=== PATIENT | female | born 1965 | race Caucasian/White ===

== ENCOUNTER 2016-05-28 08:01 | Outpatient (CLI) ==
[2016-01-18 15:15] VITALS: BMI 41.0
[2016-05-28 08:22] LABS: BILIRUBIN,URINE Negative (NEGATIVE); KETONES,URINE Negative (NEGATIVE); LEUKOCYTE ESTERASE ,URINE Negative (NEGATIVE); NITRITE,URINE Negative (NEGATIVE); PH,URINE 5.5 (5-9); PROTEIN,URINE Negative (NEGATIVE); URINE, BLOOD Negative (NEGATIVE)
[2016-05-28 08:30] LABS: ADD URINE MICROSCOPIC NO
== END 2016-05-28 08:02 | disposition home or self-care (01) ==
LOC: LAB 08:01
PROVIDERS: ATTEND Nurse Practitioner
DX: N39.0 Urinary tract infection, site not specified (principal)
CPT/HCPCS: 81001

== ENCOUNTER 2016-06-01 17:34 | Emergency (ER) | payer OTHER ==
[2016-06-01 17:38] VITALS: BP 121/78; TEMP 97.6; BMI 40.6
[2016-06-01] MEDS ORDERED: DIFLUCAN PO STA ×2 (18:16→18:28)
--- NOTE | 2016-06-01 18:21 | ED.PDOC ---
General ED Provider: Dr. LYNN DIAZ Chief Complaint: Rash Stated Complaint: RASH GROIN RIGHT LEFT SIDE Time Seen by Physician: 17:45 Mode of Arrival: Walk-In Information Source: Patient Exam Limitations: No limitations Primary Care Provider: JULITA ESPINOZA Nursing and Triage Documentation Reviewed and Agree: Yes Skin Complaint Exam - Skin Rash/Itching Complaint/Exam Onset/Duration: 3 DAYS Symptoms Are: Still present Initial Severity: Moderate Current Severity: Moderate Aggravating: Reports: None Alleviating: Reports: None Associated Signs and Symptoms: Denies: Difficulty breathing, Fever, Chills Skin Findings: Present: Maculae Differential Diagnoses: Tinea Review of Systems - Review Of Systems Constitutional: Reports: No symptoms Eyes: Reports: No symptoms Ears, Nose, Mouth, Throat: Reports: No symptoms Respiratory: Reports: No symptoms Cardiac: Reports: No symptoms GI: Reports: No symptoms : Reports: Dysuria Musculoskeletal: Reports: Back pain Skin: Reports: Rash (GROIN) Neurological: Reports: No symptoms Endocrine: Reports: No symptoms Hematologic/Lymphatic: Reports: No symptoms All Other Systems: Reviewed and Negative Past Medical History - Past Medical History Previously Healthy: Yes Endocrine: Reports: None Cardiovascular: Reports: None Respiratory: Reports: None Hematological: Reports: None Gastrointestinal: Reports: None Genitourinary: Reports: None Neuro/Psych: Reports: None Musculoskeletal: Reports: None Cancer: Reports: None Last Menstrual Period: NONE - Surgical History General Surgical History: Reports: Unknown - Family History Family History: Reports: Unknown - Social History Smoking Status: Never smoker Hx Substance Use: No Alcohol Screening: None Physical Exam - Physical Exam Appearance: Well-appearing, No pain distress, Well-nourished Eyes: GENE, EOMI, Conjunctiva clear ENT: Ears normal, Nose normal, Oropharynx normal Respiratory: Airway patent, Breath sounds clear, Breath sounds equal, Respirations nonlabored Cardiovascular: RRR, Pulses normal, No rub, No murmur GI/: Soft, Nontender, No masses, Bowel sounds normal, No Organomegaly Musculoskeletal: Normal strength, ROM intact, No edema, No calf tenderness Skin: Warm, Dry, Normal color Neurological: Sensation intact, Motor intact, Reflexes intact, Cranial nerves intact, Alert, Oriented Psychiatric: Affect appropriate, Mood appropriate Critical Care Note - Critical Care Note Total Time (mins): 0 Course - Course Orders, Labs, Meds: Orders Category Date Time Status CBC W/ AUTO DIFF Stat LAB 06/01/16 18:18 Ordered COMPREHENSIVE METABOLIC PANEL Stat LAB 06/01/16 18:18 Ordered URINALYSIS C & S IF INDICATED Stat LAB 06/01/16 18:18 Uncollected Fluconazole [Diflucan] MEDS 06/01/16 18:16 Stat 150 mg PO ONCE STA Medications Discontinued Medications Generic Name Dose Route Start Last Admin Trade Name Freq PRN Reason Stop Dose Admin Fluconazole 150 mg 06/01/16 18:16 Diflucan PO 06/01/16 18:17 ONCE STA Vital Signs: Temp Pulse Resp BP Pulse Ox 06/01/16 17:34 97.6 F 99 H 20 121/78 95 Departure - Departure Time of Disposition: 19:00 Disposition: HOME SELF-CARE Discharge Problem: Pruritic rash, Tinea cruris Instructions: Skin Yeast Infection (ED), Jock Itch (ED), Tinea Corporis (ED) Condition: Good Pt referred to PMD for follow-up: No Additional Instructions: Please call your Family Physician as soon as possible to schedule a follow-up appointment. Allergies/Adverse Reactions: Allergies clarithromycin [From Biaxin] Adverse Reaction (Verified 06/01/16 17:39) promethazine [From Phenergan] Adverse Reaction (Verified 06/01/16 17:39) propoxyphene napsylate [From Darvocet-N 100] Adverse Reaction (Verified 17:39) Sulfa (Sulfonamide Antibiotics) Adverse Reaction (Verified 06/01/16 17:39) sulfamethoxazole [From Bactrim] Adverse Reaction (Verified 06/01/16 17:39) trimethoprim [From Bactrim] Adverse Reaction (Verified 06/01/16 17:39) Home Medications: Ambulatory Orders Aspirin [Aspirin EC] 81 mg PO DAILY 02/02/13 Gabapentin [Neurontin] 300 mg PO TID 02/02/13 Cyclobenzaprine HCl [Flexeril] 10 mg PO TID 04/13/13 Acetaminophen [Tylenol] 500 mg PO TID PRN 08/07/14 Lorazepam [Ativan] 1 mg PO BID PRN 08/07/14 Fluoxetine HCl 10 mg PO DAILY 01/18/16 Levetiracetam [Keppra] 750 mg PO BID 01/18/16 Ondansetron HCl [Zofran Tab] 4 mg PO QID PRN 01/18/16 Lisinopril [Zestril] 5 mg PO DAILY 01/21/16 Albuterol Sulfate [Proair Hfa] 2 puff IH Q4-6H PRN 06/01/16 Budesonide/Formoterol Fumarate [Symbicort 80-4.5 Mcg Inhaler] 2 puff IH BID 03/08 Frovatriptan Succinate [Frova] 2.5 mg PO PRN PRN 06/01/16 Insulin Aspart Protam & Aspart [Novolog Mix 70-30 Flexpen Syrn] 100 unit SQ BID 06/01/16 Insulin Detemir [Levemir Flextouch] 100 unit SQ BID 06/01/16 Meclizine HCl [Antivert] 25 mg PO BID PRN 06/01/16 Metformin HCl [Glucophage] 1,000 mg PO BID 06/01/16 Metronidazole [Metrogel] 75 gm TP BID 06/01/16 Pantoprazole Sodium [Protonix] 40 mg PO QDAC 06/01/16 Pravastatin Sodium [Pravachol] 20 mg PO BEDTIME 06/01/16 Rizatriptan Benzoate [Maxalt] 10 mg PO PRN PRN 06/01/16 Sumatriptan Succinate [Imitrex] 100 mg PO PRN PRN 06/01/16 Topiramate [Topamax] 50 mg PO BID 06/01/16 Zolmitriptan [Zomig] 5 mg PO PRN PRN 06/01/16 Disposition Discussed With: Patient
[2016-06-01] MEDS ORDERED: DIFLUCAN ONE (18:26)
[2016-06-01 18:41] LABS: BASOPHILS # (AUTO) 0.1 K/uL (0-0.2); BASOPHILS % (AUTO) 0.7 % (0.0-3.0); EOSINOPHILS # (AUTO) 0.5 K/ul (0.0-0.7); EOSINOPHILS % (AUTO) 5.9 % (0.0-7.0); HEMATOCRIT 42.1 % (37.0-47.0); IMMATURE GRANULOCYTE % (AUTO) 0.2 % (0.0-5.0); LYMPHOCYTES # (AUTO) 3.5 K/uL (0.60-3.4); LYMPHOCYTES % (AUTO) 40.1 (10.0-50.0); MEAN CORPUSCULAR HEMOGLOBIN 28.3 pg (27.0-31.0); MEAN CORPUSCULAR HGB CONC 33.3 (31.8-35.4); MEAN CORPUSCULAR VOLUME 85.1 fl (81.0-99.0); MONOCYTES # (AUTO) 0.6 K/uL (0.4-2.0); MONOCYTES % (AUTO) 7.4 (0-10); NEUTROPHILS # (AUTO) 3.9 K/ul (2.0-6.9); NEUTROPHILS % (AUTO) 45.7; PLATELET COUNT 282 10^3/uL (140-440); RED BLOOD COUNT 4.95 10^6/ul (4.20-5.40); WHITE BLOOD COUNT 8.62 K/ul (4.6-10.2)
[2016-06-01 18:42] LABS: BILIRUBIN,URINE Negative (NEGATIVE); KETONES,URINE Trace (NEGATIVE); LEUKOCYTE ESTERASE ,URINE Negative (NEGATIVE); NITRITE,URINE Negative (NEGATIVE); PROTEIN,URINE Negative (NEGATIVE); URINE, BLOOD Negative (NEGATIVE)
[2016-06-01 18:43] LABS: ADD URINE MICROSCOPIC NO
[2016-06-01 18:55] LABS: ALBUMIN 3.4 g/dL (3.4-5.0); ALBUMIN/GLOBULIN RATIO 0.89; ANION GAP 12.2; BILIRUBIN,TOTAL 0.28 mg/dL (0.00-1.20); BUN/CREATININE RATIO 18.27; CALCIUM 8.9 mg/dL (8.2-10.2); CREATININE 0.93 mg/dL (0.60-1.30); POTASSIUM 4.2 mmol/L (3.5-5.10); TOTAL PROTEIN 7.2 g/dL (6.4-8.2)
== END 2016-06-01 19:02 | disposition home or self-care (01) ==
LOC: ED 17:34
DX: B35.6 Tinea cruris (principal)
CPT/HCPCS: 36415; 80053; 81001; 85025; 99282

== ENCOUNTER 2016-08-05 00:41 | Emergency (ER) ==
[2016-08-05 00:55] VITALS: TEMP 97; BMI 40.0
[2016-08-05] MEDS ORDERED: SODIUM CHLORIDE 1,000 ML IV STA ×4 (01:07→03:17)
[2016-08-05 01:27] LABS: BASOPHILS # (AUTO) 0.1 K/uL (0-0.2); BASOPHILS % (AUTO) 1.3 % (0.0-3.0); EOSINOPHILS # (AUTO) 0.4 K/ul (0.0-0.7); EOSINOPHILS % (AUTO) 3.5 % (0.0-7.0); HEMATOCRIT 41.3 % (37.0-47.0); HEMOGLOBIN 13.7 g/dl (12.0-16.0); IMMATURE GRANULOCYTE % (AUTO) 0.9 % (0.0-5.0); LYMPHOCYTES # (AUTO) 2.2 K/uL (0.60-3.4); LYMPHOCYTES % (AUTO) 20.9 (10.0-50.0); MEAN CORPUSCULAR HEMOGLOBIN 28.7 pg (27.0-31.0); MEAN CORPUSCULAR HGB CONC 33.2 (31.8-35.4); MEAN CORPUSCULAR VOLUME 86.4 fl (81.0-99.0); MONOCYTES # (AUTO) 0.9 K/uL (0.4-2.0); MONOCYTES % (AUTO) 8.5 (0-10); NEUTROPHILS # (AUTO) 6.7 K/ul (2.0-6.9); NEUTROPHILS % (AUTO) 64.9; PLATELET COUNT 269 10^3/uL (140-440); RED BLOOD COUNT 4.78 10^6/ul (4.20-5.40); WHITE BLOOD COUNT 10.32 K/ul (4.6-10.2)
[2016-08-05 01:53] LABS: ALANINE AMINOTRANSFERASE 32 U/L (12-78); ALBUMIN 3.4 g/dL (3.4-5.0); ALBUMIN/GLOBULIN RATIO 0.92; ALKALINE PHOSPHATASE 60 U/L (42-98); ANION GAP 17.7; ASPARTATE AMINO TRANSFERASE 36 U/L (15-37); BILIRUBIN,TOTAL 0.46 mg/dL (0.00-1.20); BLOOD UREA NITROGEN 29 mg/dL (7-18); BUN/CREATININE RATIO 10.17; CALCIUM 8.8 mg/dL (8.2-10.2); CARBON DIOXIDE 19 mmol/L (21-32); CHLORIDE 105 mmol/L (98-107); CREATINE KINASE 376 U/L; CREATININE 2.85 mg/dL (0.60-1.30); GLUCOSE 233 mg/dL (70-110); POTASSIUM 4.7 mmol/L (3.5-5.10); SODIUM 137 mmol/L (136-145); TOTAL PROTEIN 7.1 g/dL (6.4-8.2)
[2016-08-05 01:54] LABS: CREATINE KINASE MB 3.4 ng/ml (0.0-3.6)
--- NOTE | 2016-08-05 02:26 | CT ---
EXAM: CT scan brain without contrast HISTORY: Syncope COMPARISON: CT scan brain 01/18/2016 FINDINGS: Contiguous axial images obtained from the skull base to the convexities without contrast utilizing 5-mm collimation. Sagittal and coronal reconstructions were imaged and reviewed.. The ve ntricles and CSF spaces are prominent compatible with age appropriate atrophy. There is mild perive ntricular hypodensity noted compatible with chronic microvascular disease. Visualized paranasal sin uses and mastoid air cells are clear. IMPRESSION: Age appropriate atrophy with chronic microvascular disease. No acute findings.
--- NOTE | 2016-08-05 02:29 | CT ---
EXAM: CT scan cervical spine HISTORY: Syncope fall COMPARISON: CT scan cervical spine 08/07/2014 FINDINGS: Contiguous axial images obtained from the skull base through C7-T1 utilizing 2-mm collima tion. Sagittal and coronal reconstructions were imaged and reviewed.. There is mild loss of normal cervical lordosis suggesting paraspinal muscle spasm. The vertebral bodies are normal in height an d alignment. Degenerate disc disease is noted at C4-C5 through C6-C7. The facet joints are intact. . There is multilevel central canal and foraminal stenosis. IMPRESSION: No acute findings. Multilevel central canal and foraminal stenosis.
[2016-08-05 02:44] LABS: BILIRUBIN,URINE 2+ (NEGATIVE); KETONES,URINE 1+ (NEGATIVE); LEUKOCYTE ESTERASE ,URINE Negative (NEGATIVE); NITRITE,URINE Negative (NEGATIVE); PROTEIN,URINE 1+ (NEGATIVE); URINE, BLOOD Negative (NEGATIVE)
[2016-08-05 02:53] LABS: ADD URINE MICROSCOPIC YES
[2016-08-05 02:54] LABS: BACTERIA,URINE TRACE (NOT PRESENT)
[2016-08-05 02:55] LABS: COCAIN SCREEN,URINE NEGATIVE (NEGATIVE)
--- NOTE | 2016-08-05 04:10 | CT ---
Exam: CT of the abdomen and pelvis without contrast History: Abdominal pain and diarrhea Technique: [address] of the abdomen and pelvis without intravascular contrast FINDINGS: The lung bases are clear. The liver density is diffusely decreased measuring 19 HU. No focal liver abnormality otherwise. Prior cholecystectomy. The pancreas, spleen and adrenal glands appear normal. Kidneys and proximal collecting system are unremarkable. The appendix is not seen. Paxton wel loops demonstrate normal caliber. No inflamatory change seen in the mesentery or retroperitoneum . Atherosclerotic calcification of the aorta without aneurysm. Prior hysterectomy. Normal urinary bladder. Fluid within the colon. No inflammation of the pelvic fat. No acute findings of the skeleton. Impression: 1. No inflammatory process, bowel or urinary obstruction is seen. 2. Liver steatosis
--- NOTE | 2016-08-05 06:03 | ED.PDOC ---
General ED Provider: Dr. JEFFERSON CHADWICK-ER Chief Complaint: Altered Mental Status Stated Complaint: has been ill with diarrhea since being tx for uti--felt bad today--stood up and hit her head and had syncopal episode Time Seen by Physician: 00:50 Mode of Arrival: Ambulance Information Source: Patient, EMT Exam Limitations: No limitations Primary Care Provider: JULITA ESPINOZA Nursing and Triage Documentation Reviewed and Agree: Yes Neurological Complaint Exam - Altered Mental Status Complaint/Exam Current Mental Status: Other (fatigue) Onset: Sudden Symptoms Are: Still present Episodes Lasting: Minutes Initial Severity: Mild Current Severity: Moderate Eye Deviation Present: No Character: Reports: Responsiveness, Lethargy Aggravating: Reports: None Alleviating: Reports: Spontaneous resolution Associated Signs and Symptoms: Reports: Dizziness, Illness Cardiac Risk Factors: Reports: Hypertension CVA Risk Factors: Reports: Diabetes, Hypertension Related Surgical History: Reports: None Carotid Bruit Present: No Nystagmus Present: No Gag Reflex Present: Yes Meningeal Signs Positive: No Focal Weakness: Present: None Focal Sensory Loss: Present: None Gait: Unsteady [id number]: Normal Findings Romberg Test Positive: No Babinski Sign: Negative Right, Negative Left Heel to Toe Normal: Yes Signs of Injury: Present: Normal findings Thrombolytics Considered: No Differential Diagnoses: Metabolic Disorder Review of Systems - Review Of Systems Constitutional: Reports: No symptoms, Weakness Eyes: Reports: No symptoms Ears, Nose, Mouth, Throat: Reports: No symptoms Respiratory: Reports: No symptoms Cardiac: Reports: No symptoms GI: Reports: No symptoms : Reports: No symptoms Musculoskeletal: Reports: No symptoms Skin: Reports: No symptoms Neurological: Reports: No symptoms Endocrine: Reports: No symptoms Hematologic/Lymphatic: Reports: No symptoms All Other Systems: Reviewed and Negative Past Medical History - Past Medical History Previously Healthy: Yes Endocrine: Reports: None Cardiovascular: Reports: None Respiratory: Reports: None Hematological: Reports: None Gastrointestinal: Reports: None Genitourinary: Reports: None Neuro/Psych: Reports: None Musculoskeletal: Reports: None Cancer: Reports: None Last Menstrual Period: PT HAS HAD A HYSTERECTOMY - Surgical History General Surgical History: Reports: Unknown - Family History Family History: Reports: Unknown - Social History Smoking Status: Never smoker Hx Substance Use: No Alcohol Screening: None - Immunizations Tetanus Shot up to Date: Yes Physical Exam - Physical Exam Appearance: Well-appearing, No pain distress, Well-nourished Eyes: GENE, EOMI, Conjunctiva clear ENT: Ears normal, Nose normal, Oropharynx normal Neck: Supple Respiratory: Airway patent, Breath sounds clear, Breath sounds equal, Respirations nonlabored Cardiovascular: RRR, Pulses normal, No rub, No murmur GI/: Soft, Nontender, No masses, Bowel sounds normal, No Organomegaly Musculoskeletal: Normal strength, ROM intact, No edema, No calf tenderness Skin: Warm Neurological: Sensation intact Psychiatric: Affect appropriate, Mood appropriate Interpretation - Radiology Interpretation Radiology Interpretation By: Radiologist Radiology Results: Negative Exam Interpreted: CT Scan - EKG Interpretation Time of EKG #1: 01:15 Rate: Tachy Rhythm: Sinus Ectopy: None [place]: NL ST Segment: Normal Interpretation: nsr Re-Evaluation - Re-Evaluation Time of Re-Evaluation: 06:30 Status: Improved Vital Signs Stable: Yes (bp 90s) Pain Level: 0 Appearance: NAD Lungs: Clear Skin: Warm and Dry Neuro: Alert and Oriented X3 CV: RRR Critical Care Note - Critical Care Note Total Time (mins): 15 Course - Course Hematology/Chemistry: 08/05/16 01:16 08/05/16 05:38 Orders, Labs, Meds: Lab Review 08/05/16 08/05/16 08/05/16 01:16 01:17 02:10 WBC 10.32 H RBC 4.78 Hgb 13.7 Hct 41.3 MCV 86.4 MCH 28.7 MCHC 33.2 RDW Coeff of Ghanshyam 13.2 Plt Count 269 Immature Gran % (Auto) 0.9 Neut % (Auto) 64.9 Lymph % (Auto) 20.9 [place] % (Auto) 8.5 Eos % (Auto) 3.5 Baso % (Auto) 1.3 Immature Gran # (Auto) 0.1 Neut # 6.7 Lymph # 2.2 [place] # 0.9 Eos # 0.4 Baso # 0.1 D-Dimer (Manual) 1177.62 Sodium 137 Potassium 4.7 Chloride 105 Carbon Dioxide 19 L Anion Gap 17.7 BUN 29 H Creatinine 2.85 H Estimated GFR (MDRD) 17.00 BUN/Creatinine Ratio 10.17 Glucose 233 H Calcium 8.8 Total Bilirubin 0.46 AST 36 ALT 32 Alkaline Phosphatase 60 Total Creatine Kinase 376 CK-MB (CK-2) 3.4 CK-MB (CK-2) % 0.12879 Troponin I < 0.0100 Total Protein 7.1 Albumin 3.4 Globulin 3.7 Albumin/Globulin Ratio 0.92 Urine Color Yellow Urine Clarity Cloudy Urine pH 5.0 Ur Specific [place] 1.025 Urine Protein 1+ Urine Glucose (UA) Negative Urine Ketones 1+ Urine Blood Negative Urine Nitrite Negative Urine Bilirubin 2+ Urine Urobilinogen 1.0 Ur Leukocyte Esterase Negative Ur Squamous Epith Cells Not present Urine Bacteria Trace Hyaline Casts 0-2 Urine Mucus 2+ Urine Yeast 2+ Urine Opiates Screen Positive Ur Oxycodone Screen Negative Urine Methadone Screen Negative Ur Propoxyphene Screen Negative Ur Barbiturates Screen Negative U Tricyclic Antidepress Positive Ur Phencyclidine Scrn Negative Ur Amphetamine Screen Negative U Methamphetamines Scrn Negative U Benzodiazepines Scrn Positive Urine Cocaine Screen Negative U Cannabinoids Screen Negative 08/05/16 05:38 WBC RBC Hgb Hct MCV MCH MCHC RDW Coeff of Ghanshyam Plt Count Immature Gran % (Auto) Neut % (Auto) Lymph % (Auto) [place] % (Auto) Eos % (Auto) Baso % (Auto) Immature Gran # (Auto) Neut # Lymph # [place] # Eos # Baso # D-Dimer (Manual) Sodium 137 Potassium 4.4 Chloride 110 H Carbon Dioxide 18 L Anion Gap 13.4 BUN 29 H Creatinine 2.10 H D Estimated GFR (MDRD) 25.00 BUN/Creatinine Ratio 13.80 Glucose 233 H Calcium 7.9 L Total Bilirubin AST ALT Alkaline Phosphatase Total Creatine Kinase CK-MB (CK-2) CK-MB (CK-2) % Troponin I Total Protein Albumin Globulin Albumin/Globulin Ratio Urine Color Urine Clarity Urine pH Ur Specific [place] Urine Protein Urine Glucose (UA) Urine Ketones Urine Blood Urine Nitrite Urine Bilirubin Urine Urobilinogen Ur Leukocyte Esterase Ur Squamous Epith Cells Urine Bacteria Hyaline Casts Urine Mucus Urine Yeast Urine Opiates Screen Ur Oxycodone Screen Urine Methadone Screen Ur Propoxyphene Screen Ur Barbiturates Screen U Tricyclic Antidepress Ur Phencyclidine Scrn Ur Amphetamine Screen U Methamphetamines Scrn U Benzodiazepines Scrn Urine Cocaine Screen U Cannabinoids Screen Orders Category Date Time Status ABG DRAW REQUEST Stat CARDIO 08/05/16 06:23 Ordered EKG-(ED ONLY) Stat CARDIO 08/05/16 01:07 Completed C-DIFF MONITORING (NURSING) BID CARE 08/05/16 03:17 Active Button Buttonhole Marker [ED PASTORAL COUNSELOR APPLIED] .ONCE EMERGENCY 08/05/16 01:09 Active IV [ED IV/MEDIPORT/POWERPORT] .ONCE EMERGENCY 08/05/16 01:07 Active ABG Stat LAB 08/05/16 06:23 Ordered BLOOD CULTURE Stat LAB 08/05/16 06:15 Received BMP [BASIC METABOLIC PANEL] Timed LAB 08/05/16 05:38 Completed CBC W/ AUTO DIFF Stat LAB 08/05/16 01:16 Completed COMPREHENSIVE METABOLIC PANEL Stat LAB 08/05/16 01:17 Completed CREATINE KINASE Stat LAB 08/05/16 01:17 Completed D-DIMER Stat LAB 08/05/16 01:16 Completed LACTIC ACID Stat LAB 08/05/16 06:15 Received PROCALCITONIN Stat LAB 08/05/16 06:15 Received TROPONIN I Stat LAB 08/05/16 01:17 Completed URINALYSIS C & S IF INDICATED Stat LAB 08/05/16 02:10 Completed URINE DRUG SCREEN (RAPID FOR ED) [DRUG SCREEN, URINE, LAB 08/05/16 02:10 Completed RAPID] Stat c-diff [C. DIFFICILE] Routine LAB 08/05/16 04:30 Received 0.9 % Sodium Chloride [Saline Flush] MEDS 08/05/16 01:07 Ordered 1 syr IVF PRN PRN Dextrose 5 %-Water [Dextrose 5%-Water IV Soln] 246 ml MEDS 08/05/16 06:30 Ordered Norepinephrine Bitartrate Inj [Levophed] 4 mg IV 8 mcg/min Sodium Chloride 0.9% [Sodium Chloride] 1,000 ml MEDS 08/05/16 01:07 Discontinued IV BOLUS Sodium Chloride 0.9% [Sodium Chloride] 1,000 ml MEDS 08/05/16 03:17 Discontinued IV BOLUS Sodium Chloride 0.9% [Sodium Chloride] 1,000 ml MEDS 08/05/16 03:17 Discontinued IV BOLUS Sodium Chloride 0.9% [Sodium Chloride] 1,000 ml MEDS 08/05/16 03:[address] ABDOMEN/PELVIS WO CONTRAST Stat RADS 08/05/16 03:[address] CERVICAL SPINE W/O CONTRAST Stat RADS 08/05/16 01:[address] HEAD W/O CONTRAST Stat RADS 08/05/16 01:08 Completed CXR [CHEST, 1V AP ONLY] Stat RADS 08/05/16 06:09 Ordered Medications Generic Name Dose Route Start Last Admin Trade Name Freq PRN Reason Stop Dose Admin Norepinephrine Bitartrate 4 mg 250 mls @ 30 mls/hr 08/05/16 06:30 / Dextrose IV .[id number] CHAKA Protocol 8 MCG/MIN Sodium Chloride 1 syr 08/05/16 01:07 Saline Flush IVF PRN PRN To flush IV Discontinued Medications Generic Name Dose Route Start Last Admin Trade Name Freq PRN Reason Stop Dose Admin Sodium Chloride 1,000 mls @ 1,000 mls/hr 08/05/16 01:07 08/05/16 01:15 Sodium Chloride IV 08/05/16 02:06 1,000 mls/hr BOLUS STA Administration Sodium Chloride 1,000 mls @ 1,000 mls/hr 08/05/16 03:17 08/05/16 02:35 Sodium Chloride IV 08/05/16 04:16 1,000 mls/hr BOLUS STA Administration Sodium Chloride 1,000 mls @ 250 mls/hr 08/05/16 03:17 08/05/16 04:10 Sodium Chloride IV 08/05/16 07:16 250 mls/hr BOLUS STA Administration Sodium Chloride 1,000 mls @ 1,000 mls/hr 08/05/16 03:17 Sodium Chloride IV 08/05/16 04:16 BOLUS STA Vital Signs: Temp Pulse Resp BP Pulse Ox 08/05/16 00:43 97 F L 100 H 18 56/36 L 97 Departure - Departure Time of Disposition: 06:30 Disposition: TSF SHORT-TRM HOSP Discharge Problem: Hypovolemic shock Instructions: Hypotension (ED) Condition: Fair Pt referred to PMD for follow-up: Yes Allergies/Adverse Reactions: Allergies clarithromycin [From Biaxin] Adverse Reaction (Verified 08/05/16 00:57) promethazine [From Phenergan] Adverse Reaction (Verified 08/05/16 00:57) propoxyphene napsylate [From Darvocet-N 100] Adverse Reaction (Verified 00:57) Sulfa (Sulfonamide Antibiotics) Adverse Reaction (Verified 08/05/16 00:57) sulfamethoxazole [From Bactrim] Adverse Reaction (Verified 08/05/16 00:57) trimethoprim [From Bactrim] Adverse Reaction (Verified 08/05/16 00:57) Home Medications: Ambulatory Orders Aspirin [Aspirin EC] 81 mg PO DAILY 02/02/13 Gabapentin [Neurontin] 300 mg PO TID 02/02/13 Cyclobenzaprine HCl [Flexeril] 10 mg PO TID 04/13/13 Acetaminophen [Tylenol] 500 mg PO TID PRN 08/07/14 Lorazepam [Ativan] 1 mg PO BID PRN 08/07/14 Fluoxetine HCl 10 mg PO BEDTIME 01/18/16 Levetiracetam [Keppra] 750 mg PO BID 01/18/16 Ondansetron HCl [Zofran Tab] 4 mg PO QID PRN 01/18/16 Lisinopril [Zestril] 5 mg PO DAILY 01/21/16 Albuterol Sulfate [Proair Hfa] 2 puff IH Q4-6H PRN 06/01/16 Budesonide/Formoterol Fumarate [Symbicort 80-4.5 Mcg Inhaler] 2 puff IH BID 03/08 Insulin Aspart Protam & Aspart [Novolog Mix 70-30 Flexpen Syrn] 1 unit SQ DIRECTED 06/01/16 Meclizine HCl [Antivert] 25 mg PO BID PRN 06/01/16 Metformin HCl [Glucophage] 1,000 mg PO BID 06/01/16 Metronidazole [Metrogel] 75 gm TP BID 06/01/16 Pantoprazole Sodium [Protonix] 40 mg PO QDAC 06/01/16 Pravastatin Sodium [Pravachol] 20 mg PO BEDTIME 06/01/16 Topiramate [Topamax] 50 mg PO BID 06/01/16 Insulin Detemir [Levemir] 24 unit SUBCUT BEDTIME 08/05/16 Transfer Form Completed: Yes Disposition Discussed With: Patient, Family
[2016-08-05 06:05] LABS: ANION GAP 13.4; BUN/CREATININE RATIO 13.8; CALCIUM 7.9 mg/dL (8.2-10.2); CREATININE 2.1 mg/dL (0.60-1.30); POTASSIUM 4.4 mmol/L (3.5-5.10)
[2016-08-05] MEDS ORDERED: LEVOPHED 4 MG in DEXTROSE 5%-WATER IV SOLN 246 ML IV SCH (06:30)
[2016-08-05 06:47] LABS: ABG PCO2 37.8 mmHg (35-45); ABG PH 7.274 (7.35-7.45)
[2016-08-05 06:48] LABS: ABG BASE EXCESS -9 (-2.0-2.0); ABG HCO3 17.6 (22.0-26.0); ABG TCO2 19 (22.0-28.0)
[2016-08-05 06:51] VITALS: BP 89/57
--- NOTE | 2016-08-05 07:13 | DI ---
EXAM: CHEST FRONTAL VIEW HISTORY: Syncope. COMPARISON: None FINDINGS: Heart size and mediastinum within normal limits. Lungs are free of infiltrate. No c onsolidation or pleural fluid. There is no pneumothorax or acute bony finding. IMPRESSION: Findings within normal limits.
== END 2016-08-05 07:20 | disposition short-term general hospital (02) ==
LOC: ED 00:41
DX: R57.1 Hypovolemic shock (principal); I95.9 Hypotension, unspecified; R41.82 Altered mental status, unspecified; R19.7 Diarrhea, unspecified; N39.0 Urinary tract infection, site not specified; S09.90XA Unspecified injury of head, initial encounter; R55 Syncope and collapse; E11.9 Type 2 diabetes mellitus without complications; I10 Essential (primary) hypertension; Z79.899 Other long term (current) drug therapy
CPT/HCPCS: 36415; 80048; 80053; 80306; 81001; 82550; 82553; 82803; 83605; 84145; 84484; 85025; 85379; 87040; 87493; 93005; 93010; 96361; 96365; 99285

== ENCOUNTER 2016-08-05 07:19 | Outpatient (CLI) ==
[2016-08-05 00:55] VITALS: BMI 40.0
== END 2016-08-05 07:20 ==
LOC: AMBL 07:19
PROVIDERS: ATTEND Emergency Medicine
DX: R40.4 Transient alteration of awareness (principal); R19.7 Diarrhea, unspecified; R53.1 Weakness; R53.83 Other fatigue; R03.1 Nonspecific low blood-pressure reading; R00.0 Tachycardia, unspecified; R40.2411 Glasgow coma scale score 13-15, in the field [EMT or ambulance]

== ENCOUNTER 2016-09-17 09:27 | Outpatient (CLI) | payer OTHER ==
[2016-09-17 10:04] LABS: CHOL/HDL RATIO 4.6 (4.5-5.5)
== END 2016-09-17 09:28 | disposition home or self-care (01) ==
LOC: LAB 09:27
PROVIDERS: ATTEND Nurse Practitioner
DX: E78.5 Hyperlipidemia, unspecified (principal)
CPT/HCPCS: 36415; 80061

== ENCOUNTER 2016-10-01 09:21 | Outpatient (CLI) ==
--- NOTE | 2016-10-01 10:01 | DI ---
Exam: Three x-rays of the left shoulder. Comparison: Chest x-ray performed 08/05/2016. Reason for exam: Pain in joint region. FINDINGS: No acute fracture or dislocation. The humeral head articulates with the bony glenoid. T he acromioclavicular joint space is well maintained. The scapular Y-view is unremarkable. Impression: No acute fracture or dislocation in the left shoulder
--- NOTE | 2016-10-01 10:03 | DI ---
EXAM: RIGHT KNEE. HISTORY: Joint pain. FINDINGS: Right knee four views. No comparison. There is mild osteoarthritis of the medial compar tment. Scattered mild bony spurring. Questionable trace joint effusion. No acute fracture is iden tified. Chronic irregularity of the anterior tibial tuberosity. IMPRESSION: 1. Chronic irregularity of the anterior tibial tuberosity. 2. Mild medial right osteoarthritis. Questionable trace joint effusion. 3. No acute fracture.
== END 2016-10-01 09:22 | disposition home or self-care (01) ==
LOC: RAD 09:21
PROVIDERS: ATTEND Nurse Practitioner
DX: M25.561 Pain in right knee (principal); M25.512 Pain in left shoulder

== ENCOUNTER 2016-10-03 10:47 | Outpatient (CLI) ==
[2016-10-03 11:16] LABS: HEMATOCRIT 46.5 % (37.0-47.0); HEMOGLOBIN 15.4 g/dl (12.0-16.0); MEAN CORPUSCULAR HEMOGLOBIN 27.7 pg (27.0-31.0); MEAN CORPUSCULAR HGB CONC 33.1 (31.8-35.4); MEAN CORPUSCULAR VOLUME 83.6 fl (81.0-99.0); RED BLOOD COUNT 5.56 10^6/ul (4.20-5.40); WHITE BLOOD COUNT 6.1 K/ul (4.6-10.2)
[2016-10-03 11:18] LABS: BILIRUBIN,URINE Negative (NEGATIVE); KETONES,URINE Negative (NEGATIVE); LEUKOCYTE ESTERASE ,URINE Negative (NEGATIVE); NITRITE,URINE Negative (NEGATIVE); PROTEIN,URINE Negative (NEGATIVE); URINE, BLOOD Negative (NEGATIVE)
[2016-10-03 11:20] LABS: ADD URINE MICROSCOPIC YES
[2016-10-03 11:25] LABS: BACTERIA,URINE 1+ (NOT PRESENT)
[2016-10-03 11:34] LABS: ALBUMIN 3.4 g/dL (3.4-5.0); ALBUMIN/GLOBULIN RATIO 0.83; ANION GAP 14.1; BILIRUBIN,TOTAL 0.53 mg/dL (0.00-1.20); BUN/CREATININE RATIO 20.43; CALCIUM 9.4 mg/dL (8.2-10.2); CREATININE 0.93 mg/dL (0.60-1.30); POTASSIUM 4.1 mmol/L (3.5-5.10); TOTAL PROTEIN 7.5 g/dL (6.4-8.2)
== END 2016-10-03 10:48 | disposition home or self-care (01) ==
LOC: LAB 10:47
PROVIDERS: ATTEND Nurse Practitioner
DX: R19.7 Diarrhea, unspecified (principal); E11.42 Type 2 diabetes mellitus with diabetic polyneuropathy
CPT/HCPCS: 36415; 80053; 81001; 85027

== ENCOUNTER 2016-10-10 08:15 | Outpatient (CLI) | payer OTHER ==
--- NOTE | 2016-10-10 11:27 | MRI ---
EXAM: MRI of the left shoulder without contrast COMPARISON: Left shoulder radiographs 10/01/2016. HISTORY: Left shoulder pain with decreased range of motion. TECHNIQUE: Multiplanar noncontrast MR images of the left shoulder were acquired using a 1.2 Jennifer m [employer]. The coronal proton density sequence was repeated due to patient motion artifact. Several ad ditional sequences were moderately limited by patient motion artifact. FINDINGS: There is moderate supraspinatus and subscapularis tendinosis with mild infraspinatus tend inosis. Bursal surface fraying of the supraspinatus at the level of the acromion measuring 5 mm in extent. There is mild thinning and articular surface irregularity the supraspinatus at the critical zone measuring 9 x 9 mm in extent related articular surface fraying/shallow partial-thickness artic ular surface tear involving less than 50% of the tendon thickness. Small partial-thickness/intrasub stance tear of the superior insertional fibers of the subscapularis. No full-thickness tear or tend on retraction. Small amount of fluid in the subacromial/subdeltoid bursa. Limited assessment glenoid labrum on this non arthrographic study. Linear hyperintense signal withi n the substance of the superior/posterosuperior labrum extending along the chondrolabral junction co ncerning for a small tear on limited assessment. Tear of the posterior labrum extends both above an d below the glenoid equator. Mild glenohumeral joint osteoarthrosis with a small joint effusion. N o evidence of an acute fracture or dislocation. The long head of the biceps is located within the bicipital groove with mild tendinosis. Marked hypertrophic degenerative changes of the acromioclavicular joint with lateral downsloping of the acromion. No evidence of an os acromiale or abnormal widening of the acromioclavicular joint sp saravanan. Moderate loss muscle bulk involving the teres minor with mild fatty infiltration of the deltoi d suggesting sequela denervation in the distribution of the axillary nerve. IMPRESSION: 1. Moderate rotator cuff tendinosis. Bursal surface fraying of the supraspinatus and addition to a rticular surface fraying/partial thickness articular surface tear more distally. Partial-thickness/ intrasubstance tear of the subscapularis. No full-thickness rotator cuff tear or tendon retraction. 2. Hypertrophic degenerative changes of the acromioclavicular joint with lateral downsloping of the acromion. 3. Suspected tear of the superior posterior glenoid labrum on this non arthrographic study. This c ould be further assessed with MR arthrography as clinically warranted. 4. Mild long head biceps tendinosis. 5. Small amount of fluid in the subacromial/subdeltoid bursa appear
== END 2016-10-10 08:16 | disposition home or self-care (01) ==
LOC: RAD 08:15
PROVIDERS: ATTEND Nurse Practitioner
DX: M25.512 Pain in left shoulder (principal)

== ENCOUNTER 2016-11-18 08:15 | Outpatient (RCR) ==
--- NOTE | 2016-10-31 09:37 | RS.OPPTDN ---
Subjective Date of Note: 10/31/16 Visit #: 2 Date of Evaluation: 10/29/16 Payer Source: Insurance Treatment Diagnosis: Left shoulder stiffness, left shoulder pain, s/p manipulation Current Subjective/complaints:: Patient reports doing her HEP as instructed.She is very motivated and pleased with her progress since the manipulation 3 days ago. Pain Assessment - Pain Description Pain Location: left shoulder Pain Description: Dull, Aching Current Pain Intensity: not rated today Interventions - Exercise/Activities/Manual Therapy Exercises/Activities: 35 mins. total of stretching to left shoulder in all directions along with gentle joint distraction .Exercises included pendulum , shoulder flexion ,external rotation,internal rotation,abduction/adduction. Total minutes of Exercise: 35 Manual Therapy: NA Total minutes of Manual Therapy: 0 HOME EXERCISE PROGRAM: passive self stretching into shoulder flexion, abduction , horizontal adduction, ER and also pendulum exercise. - Charges Total Direct Minutes: 35 Total Treatment Time: 35 Procedures billed for this date of service:: ex 2 Assessment: Patient tolerates exercises very well,has soft end feel present for all motions today.She reports slight elevation in pain with end range external rotation.She has very good understanding of precautions and to avoid the ," no pain ,no gain" theory. Patient Education: Education of diagnosis, Body/Joint mechanics, Home Exercise Program, Home Safety, Activity Modification, Education of Plan of Care Patient demonstrates compliance with HEP?: Yes Short Term Goals Goal #1: Pt compliant and independent with HEP. Goal to be met by: 11/06/16 Progress towards Goal:: Progressing Goal #2: PROM of the right shoulder WNL's. Goal to be met by: 11/13/16 Progress towards Goal:: Progressing Goal #3: Right shoulder strength 4+/5 throughout. Goal to be met by: 11/13/16 [facility] Goals Goal #1: Pt knows HEP and to continue ex's to maintain functional level at D/C. Goal to be met by: 12/19/16 Progress towards goal: Progressing Goal #2: Score on UE functional scale improved to 60/80. Goal to be met by: 12/19/16 Goal #3: Pt able to use left UE for all selfcare and ADL's with minimal difficulty. Goal to be met by: 12/19/16 Progress towards goal: Progressing Goal #4: Pt able to perform daily functional reaching with left UE w/o pain. Goal to be met by: 12/19/16 Plan PLAN OF CARE EXPIRES ON:: 12/19/16 ORDER # VISITS AND/OR THROUGH DATE: 12/19/16 PLAN: Continue Plan of Care
--- NOTE | 2016-10-31 14:25 | RS.OPPTEV2 ---
Date of Note: 10/29/16 Visit #: 1 Date of Evaluation: 10/29/16 Payer Source: Insurance Procedure Performed: Left shoulder manipulation Date of Procedure: 10/28/16 Treatment Diagnosis: Left shoulder stiffness, left shoulder pain, s/p manipulation History of Condition/Mechanism of Injury:: Patient reports left shoulder pain started approximately three weeks ago. States she was given the option of having therapy first or having a manipulation. Prior Level of Function.....Patient was independent with: ADL's, Self Care, Work /Vocation, Caregiving, Ambulation/Mobility, Community Integration/Access Functional Limitations: Sleep, Self Care, ADL's, Reaching, Pushing, Pulling, Lifting, Carrying, Community Access/Integration Current Subjective/complaints:: Patient reports left shoulder is still numb since the manipulation yesterday. States she is getting sensation back in her left hand and forearm. States she took the sling off last night. Reports taking pain medication this AM prior to coming in for therapy. Her helped her move her shoulder last night. She reports being right hand dominant , but uses her left UE for more than the average right handed person. Treatment Side (optional): Left Medical History Medical History Comments:: History of neck pain, migraines, sleep apnea, restless leg syndrome, seizures,neuropathy, numbness, LBP and sciatica. Smoking Status: Never smoker Hx Home Medications: Topamax, lisinopril, gabapentin,flexeril,insulin, pain medication for left shoulder (patient did not give name of medication) Patient's Goals: Her goal is to regain full AROM of the left shoulder and to be able to use it like she could before her problems began. Pain Assessment - Pain Description Pain Location: left shoulder Current Pain Intensity: 7/10 Worst Pain Intensity: 10/10 Functional Outcome Measure UE Functional Index: 35 (35/80=56.25% impairment) - G Codes & Severity Modifier G Codes & Modifier: NA Source of G Code score: NA Observation - Observation Posture: Forward Head, Rounded Shoulders Handedness: Right Shoulder ROM: Right WFL's Shoulder Muscle Strength: Right WFL's - Left Shoulder ROM Left Shoulder Flexion: 35 (degrees AROM) Left Shoulder Abduction: 40 (degrees AROM) Comments: PROM left shoulder flexion 150 degrees, abduction 110-120 degrees, ER 40-50 degrees. AROM and PROM limited by pain with soft end feel in all directions. - Left Shoulder Strength Left Shoulder Flexion: 3+ Fair+ Left Shoulder Extension: 4- Good- Left Shoulder Abduction: 3+ Fair+ Left Shoulder Adduction: 4- Good- Left Shoulder External Rotation: 4- Good- Left Shoulder Internal Rotation: 4- Good- Sensation - Sensation Comments: Sensation currently only in the left hand and up to the mid forearm. Interventions - Exercise/Activities/Manual Therapy Exercises/Activities: Patient received stretching to left shoulder in all directions along with gentle joint distraction . X 21 mins. Patient instructed in stretching/ROM exercises to work on at home of passive self stretching into shoulder flexion, abduction, horizontal adduction, ER and also pendulum exercise. Manual Therapy: NA HOME EXERCISE PROGRAM: passive self stretching into shoulder flexion, abduction , horizontal adduction, ER and also pendulum exercise. - Charges Total Direct Minutes: 45 mins Total Treatment Time: 45 mins Procedures billed for this date of service:: BO[employer] [place]DRUM Assessment Assessment: Patient presents to therapy with a diagnosis of left shoulder adhesive capsulitis, s/p manipulation under anesthesia. She exhibits limited Passive and AROM of the left shoulder. Reports sensation has not completely returned to the left UE. Overall use of the left UE for selfcare and ADL's is limited due to limited AROM. She demonstrates good potential to regain full AROM of the left shoulder to be able to perform all ADL's and activities as she could before her shoulder problems began. Patient Education: Education of diagnosis, Body/Joint mechanics, Home Exercise Program, Home Safety, Activity Modification, Education of Plan of Care Rehab Potential: Good Short Term Goals Goal #1: Pt compliant and independent with HEP. Goal to be met by: 11/06/16 Goal #2: PROM of the right shoulder WNL's. Goal to be met by: 11/13/16 Goal #3: Right shoulder strength 4+/5 throughout. Goal to be met by: 11/13/16 [facility] Goals Goal #1: Pt knows HEP and to continue ex's to maintain functional level at D/C. Goal to be met by: 12/19/16 Goal #2: Score on UE functional scale improved to 60/80. Goal to be met by: 12/19/16 Goal #3: Pt able to use left UE for all selfcare and ADL's with minimal difficulty. Goal to be met by: 12/19/16 Goal #4: Pt able to perform daily functional reaching with left UE w/o pain. Goal to be met by: 12/19/16 Plan - Treatment to be Provided Procedures: Therapeutic Exercises, Therapeutic Activity, Manual Therapy, Patient Education Modalities: Cryotherapy - Treatment Plan Frequency: Daily (for 2 weeks, then 3 days/week for 4 weeks.) Duration: 6 weeks ORDER # VISITS AND/OR THROUGH DATE: 12/19/16 - Treatment Code (1) Shoulder stiffness Qualifiers: Laterality: left Qualified Description: Stiffness of left shoulder joint Qualifier Code(s): (M25.612) Stiffness of left shoulder, not elsewhere classified (2) Adhesive capsulitis Qualifiers: Laterality: left Qualified Description: Adhesive capsulitis of left shoulder Qualifier Code(s): (M75.02) Adhesive capsulitis of left shoulder (3) S/P operative procedure on shoulder Comments: Z98.890
--- NOTE | 2016-11-03 08:56 | RS.CXNS ---
Date of scheduled appointment: 11/03/16 Type: Cancel Reason for Cancel/NS: Patient called ,sick today.
--- NOTE | 2016-11-04 08:21 | RS.CXNS ---
Date of scheduled appointment: 11/04/16 Type: Cancel Reason for Cancel/NS: Patient called ,sick again today.
--- NOTE | 2016-11-05 09:16 | RS.OPPTDN ---
Subjective Date of Note: 11/05/16 Visit #: 3 Date of Evaluation: 10/29/16 Payer Source: Insurance Treatment Diagnosis: Left shoulder stiffness, left shoulder pain, s/p manipulation Current Subjective/complaints:: Patient very motivated and pleasant.She reports donig exercises several times per day.She has a copy of the protocol for shoulder manipulation at home. Pain Assessment - Pain Description Pain Location: left shoulder Pain Description: Dull, Aching Current Pain Intensity: 0 Other Comments regarding Pain:: Dull ache is occasional due to fatigue. Interventions - Exercise/Activities/Manual Therapy Exercises/Activities: 30 mins. ,including elevation,external rotation ,internal rotation,horizontal adduction,pendulum.Multiple reps. each exercise. Total minutes of Exercise: 30 Manual Therapy: NA Total minutes of Manual Therapy: 0 HOME EXERCISE PROGRAM: passive self stretching into shoulder flexion, abduction , horizontal adduction, ER and also pendulum exercise. - Charges Total Direct Minutes: 30 Total Treatment Time: 30 Procedures billed for this date of service:: ex 2 Assessment: Patient is progressing very well,no report of pain with each motion today.She has good understanding of joint protection,is motivated to improve.She has soft end feel present for elevation ,ER and IR. Patient Education: Education of diagnosis, Body/Joint mechanics, Home Exercise Program, Home Safety, Activity Modification, Education of Plan of Care Patient demonstrates compliance with HEP?: Yes Short Term Goals Goal #1: Pt compliant and independent with HEP. Goal to be met by: 11/06/16 Progress towards Goal:: Progressing Goal #2: PROM of the right shoulder WNL's. Goal to be met by: 11/13/16 Progress towards Goal:: Progressing Goal #3: Right shoulder strength 4+/5 throughout. Goal to be met by: 11/13/16 Technology Applications Consultant Goals Goal #1: Pt knows HEP and to continue ex's to maintain functional level at D/C. Goal to be met by: 12/19/16 Progress towards goal: Progressing Goal #2: Score on UE functional scale improved to 60/80. Goal to be met by: 12/19/16 Goal #3: Pt able to use left UE for all selfcare and ADL's with minimal difficulty. Goal to be met by: 12/19/16 Progress towards goal: Progressing Goal #4: Pt able to perform daily functional reaching with left UE w/o pain. Goal to be met by: 12/19/16 Plan PLAN OF CARE EXPIRES ON:: 12/19/16 ORDER # VISITS AND/OR THROUGH DATE: 12/19/16 PLAN: Progress Exercises
--- NOTE | 2016-11-06 09:02 | RS.OPPTDN ---
Subjective Date of Note: 11/06/16 Visit #: 4 Date of Evaluation: 10/29/16 Payer Source: Insurance Treatment Diagnosis: Left shoulder stiffness, left shoulder pain, s/p manipulation Current Subjective/complaints:: Patient doing well,very compliant to doing her exercises. Pain Assessment - Pain Description Pain Location: left shoulder Pain Description: Dull, Aching Current Pain Intensity: 0 Interventions - Exercise/Activities/Manual Therapy Exercises/Activities: 30 mins. ,in supine, for elevation,external rotation , internal rotation,horizontal adduction,pendulum (standing).Multiple reps. each exercise.Progressed to upright exercises at end of session for same motions. Total minutes of Exercise: 30 Manual Therapy: NA Total minutes of Manual Therapy: 0 HOME EXERCISE PROGRAM: passive self stretching into shoulder flexion, abduction , horizontal adduction, ER and also pendulum exercise. - Charges Total Direct Minutes: 30 Total Treatment Time: 30 Procedures billed for this date of service:: ex 2 Assessment: Patient progressing well,continues to have improved L shoulder motion,with only stretch dsicomfort at end range.She is very compliant to HEP. Patient Education: Education of diagnosis, Body/Joint mechanics, Home Exercise Program, Home Safety, Activity Modification, Education of Plan of Care Patient demonstrates compliance with HEP?: Yes Short Term Goals Goal #1: Pt compliant and independent with HEP. Goal to be met by: 11/06/16 Progress towards Goal:: Progressing Goal #2: PROM of the right shoulder WNL's. Goal to be met by: 11/13/16 Progress towards Goal:: Partially Met Goal #3: Right shoulder strength 4+/5 throughout. Goal to be met by: 11/13/16 [facility] Goals Goal #1: Pt knows HEP and to continue ex's to maintain functional level at D/C. Goal to be met by: 12/19/16 Progress towards goal: Progressing Goal #2: Score on UE functional scale improved to 60/80. Goal to be met by: 12/19/16 Goal #3: Pt able to use left UE for all selfcare and ADL's with minimal difficulty. Goal to be met by: 12/19/16 Progress towards goal: Progressing Goal #4: Pt able to perform daily functional reaching with left UE w/o pain. Goal to be met by: 12/19/16 Plan PLAN OF CARE EXPIRES ON:: 12/19/16 ORDER # VISITS AND/OR THROUGH DATE: 12/19/16 PLAN: Progress Exercises
--- NOTE | 2016-11-07 13:28 | RS.CSNOTE ---
PT Case Note Date of Note: 11/07/16 Note: Received protocol yesterday, with 5 X week for 4-6 weeks filled in, after requesting this information the day of the evaluation. Because we did not have an order with the frequency listed up until now, we could not see her more than three days a week. She has progressed well with attending 3 days a week, and we show no reason for her to go to 5 days a week at this point. We will continue therapy 3 days a week to achieve her goals as set at her initial evaluation.
--- NOTE | 2016-11-10 09:00 | RS.OPPTDN ---
Subjective Date of Note: 11/10/16 Visit #: 5 Date of Evaluation: 10/29/16 Payer Source: Insurance Treatment Diagnosis: Left shoulder stiffness, left shoulder pain, s/p manipulation Current Subjective/complaints:: Patient reports soreness in th etriceps,but no shoulder pain today.She continues to be very compliant to HEP. Pain Assessment - Pain Description Pain Location: left shoulder Pain Description: Dull, Aching Current Pain Intensity: 0 Interventions - Exercise/Activities/Manual Therapy Exercises/Activities: 40 mins. ,in supine,3/15 reps. for elevation,external rotation ,internal rotation,horizontal adduction.Progressed to upright exercises at end of session for same motions. Total minutes of Exercise: 40 Manual Therapy: NA Total minutes of Manual Therapy: 0 HOME EXERCISE PROGRAM: passive self stretching into shoulder flexion, abduction , horizontal adduction, ER and also pendulum exercise. - Charges Total Direct Minutes: 40 Total Treatment Time: 40 Procedures billed for this date of service:: ex 3 Assessment: Patient tolerates AROM well,with fatigue only.She has functional ROM ,but understands she is 2 weeks after manipulation tomorow,and to still be cautious,avoid strenuous activities.She is very attentive to recommendations of the therapy staff.She also has a copy of hEP. Patient Education: Body/Joint mechanics, Home Exercise Program, Home Safety, Education of Plan of Care Patient demonstrates compliance with HEP?: Yes Short Term Goals Goal #1: Pt compliant and independent with HEP. Goal to be met by: 11/06/16 Progress towards Goal:: Partially Met Goal #2: PROM of the right shoulder WNL's. Goal to be met by: 11/13/16 Progress towards Goal:: Partially Met Goal #3: Right shoulder strength 4+/5 throughout. Goal to be met by: 11/13/16 Progress towards Goal:: Progressing Channel Marketing Specialist Goals Goal #1: Pt knows HEP and to continue ex's to maintain functional level at D/C. Goal to be met by: 12/19/16 Progress towards goal: Progressing Goal #2: Score on UE functional scale improved to 60/80. Goal to be met by: 12/19/16 Goal #3: Pt able to use left UE for all selfcare and ADL's with minimal difficulty. Goal to be met by: 12/19/16 Progress towards goal: Progressing Goal #4: Pt able to perform daily functional reaching with left UE w/o pain. Goal to be met by: 12/19/16 Progress towards goal: Progressing Plan PLAN OF CARE EXPIRES ON:: 12/19/16 ORDER # VISITS AND/OR THROUGH DATE: 12/19/16 PLAN: Progress Exercises
--- NOTE | 2016-11-12 08:22 | RS.CXNS ---
Date of scheduled appointment: 11/12/16 Type: Cancel Reason for Cancel/NS: sick
--- NOTE | 2016-11-13 08:56 | RS.OPPTDN ---
Subjective Date of Note: 11/13/16 Visit #: 6 Date of Evaluation: 10/29/16 Payer Source: Insurance Treatment Diagnosis: Left shoulder stiffness, left shoulder pain, s/p manipulation Current Subjective/complaints:: Patient reports she is doing well,continues to do HEP several times per day. Pain Assessment - Pain Description Pain Location: left shoulder Pain Description: Dull, Aching Current Pain Intensity: 0 Interventions - Exercise/Activities/Manual Therapy Exercises/Activities: 40 mins. ,in supine,3/15 reps. for elevation,external rotation ,internal rotation,horizontal adduction.Progressed to upright exercises at end of session for same motions. Total minutes of Exercise: 40 Manual Therapy: NA Total minutes of Manual Therapy: 0 HOME EXERCISE PROGRAM: passive self stretching into shoulder flexion, abduction , horizontal adduction, ER and also pendulum exercise. - Charges Total Direct Minutes: 40 Total Treatment Time: 40 Procedures billed for this date of service:: ex 3 Assessment: Patient has functional ROM actively without report of sharp pain.She does report stretch discomfort at end range of flexion .We discussed POC for next week and plan to progress to resistive exercises. Patient Education: Body/Joint mechanics, Home Exercise Program, Education of Plan of Care Patient demonstrates compliance with HEP?: Yes Short Term Goals Goal #1: Pt compliant and independent with HEP. Goal to be met by: 11/06/16 Progress towards Goal:: Partially Met Goal #2: PROM of the right shoulder WNL's. Goal to be met by: 11/13/16 Progress towards Goal:: Partially Met Goal #3: Right shoulder strength 4+/5 throughout. Goal to be met by: 11/13/16 Progress towards Goal:: Progressing Kitchen Lead Goals Goal #1: Pt knows HEP and to continue ex's to maintain functional level at D/C. Goal to be met by: 12/19/16 Progress towards goal: Progressing Goal #2: Score on UE functional scale improved to 60/80. Goal to be met by: 12/19/16 Goal #3: Pt able to use left UE for all selfcare and ADL's with minimal difficulty. Goal to be met by: 12/19/16 Progress towards goal: Progressing Goal #4: Pt able to perform daily functional reaching with left UE w/o pain. Goal to be met by: 12/19/16 Progress towards goal: Progressing Plan PLAN OF CARE EXPIRES ON:: 12/19/16 ORDER # VISITS AND/OR THROUGH DATE: 12/19/16 PLAN: Progress Exercises
--- NOTE | 2016-11-14 09:54 | RS.CXNS ---
Date of scheduled appointment: 11/14/16 Type: Cancel Reason for Cancel/NS: Patient needing to help her family.
--- NOTE | 2016-11-18 08:55 | RS.OPPTDN ---
Subjective Date of Note: 11/18/16 Visit #: 7 Date of Evaluation: 10/29/16 Payer Source: Insurance Treatment Diagnosis: Left shoulder stiffness, left shoulder pain, s/p manipulation Current Subjective/complaints:: Patient pleased with her progress,continues to be compliant to HEP. Pain Assessment - Pain Description Pain Location: left shoulder Pain Description: Dull, Aching Current Pain Intensity: 0 Interventions - Exercise/Activities/Manual Therapy Exercises/Activities: 40 mins. ,in supine,3/15 reps. with 4# wand for elevation , then 2 # dumbbell for external rotation ,internal rotation,horizontal adduction in supine.Patient education and reviewed protocol as she is beginning Phase III today. Total minutes of Exercise: 40 Manual Therapy: NA Total minutes of Manual Therapy: 0 HOME EXERCISE PROGRAM: passive self stretching into shoulder flexion, abduction , horizontal adduction, ER and also pendulum exercise.Begin light resistance on 11-18-16 ,Phase III of protocol. - Charges Total Direct Minutes: 40 Total Treatment Time: 40 Procedures billed for this date of service:: ex 3 Assessment: Patient tolerates beginning Phase III well.She initially has slight discomfort with external rotation ,but this lessened as the reps. progressed.She has good understanding of HEp,motivated to improve. Patient Education: Education of diagnosis, Body/Joint mechanics, Home Exercise Program, Home Safety, Activity Modification, Education of Plan of Care Patient demonstrates compliance with HEP?: Yes Short Term Goals Goal #1: Pt compliant and independent with HEP. Goal to be met by: 11/06/16 Progress towards Goal:: Partially Met Goal #2: PROM of the right shoulder WNL's. Goal to be met by: 11/13/16 Progress towards Goal:: Met Goal #3: Right shoulder strength 4+/5 throughout. Goal to be met by: 11/13/16 Progress towards Goal:: Progressing Custodial Goals Goal #1: Pt knows HEP and to continue ex's to maintain functional level at D/C. Goal to be met by: 12/19/16 Progress towards goal: Partially Met Goal #2: Score on UE functional scale improved to 60/80. Goal to be met by: 12/19/16 Goal #3: Pt able to use left UE for all selfcare and ADL's with minimal difficulty. Goal to be met by: 12/19/16 Progress towards goal: Progressing Goal #4: Pt able to perform daily functional reaching with left UE w/o pain. Goal to be met by: 12/19/16 Progress towards goal: Progressing Plan PLAN OF CARE EXPIRES ON:: 12/19/16 ORDER # VISITS AND/OR THROUGH DATE: 12/19/16 PLAN: Progress Exercises
== END 2016-11-20 ==
PROVIDERS: ATTEND Orthopaedic Surgery
DX: M75.02 Adhesive capsulitis of left shoulder (principal)

== ENCOUNTER 2016-11-27 08:14 | Outpatient (RCR) ==
--- NOTE | 2016-11-27 09:09 | RS.OPPTDN ---
Subjective Date of Note: 11/27/16 Visit #: 8 Date of Evaluation: 10/29/16 Payer Source: Insurance Treatment Diagnosis: Left shoulder stiffness, left shoulder pain, s/p manipulation Pain Assessment - Pain Description Pain Location: left shoulder Current Pain Intensity: 0 Interventions - Exercise/Activities/Manual Therapy Exercises/Activities: 40 mins. in supine and sitting , 3/15 reps. with 4# wand for elevation, then 2 # dumbbell for external rotation ,internal rotation, horizontal adduction in supine.Added yellow theraband exercises and return demo by patient for home use of the same motions. Total minutes of Exercise: 40 Manual Therapy: NA Total minutes of Manual Therapy: 0 HOME EXERCISE PROGRAM: passive self stretching into shoulder flexion, abduction , horizontal adduction, ER and also pendulum exercise.Began light resistance on 11-18-16 ,Phase III of protocol. - Charges Total Direct Minutes: 40 Total Treatment Time: 40 Procedures billed for this date of service:: ex 3 Assessment: Patient continues to progress well toward all goals.She has increased strength and motion with no report of pain during today's exercises.She can benefit from continued strengthening to safely perform ADL's. Patient Education: Education of diagnosis, Body/Joint mechanics, Home Exercise Program, Home Safety, Activity Modification, Education of Plan of Care Patient demonstrates compliance with HEP?: Yes Short Term Goals Goal #1: Pt compliant and independent with HEP. Goal to be met by: 11/06/16 Progress towards Goal:: Partially Met Goal #2: PROM of the right shoulder WNL's. Goal to be met by: 11/13/16 Progress towards Goal:: Met Goal #3: Right shoulder strength 4+/5 throughout. Goal to be met by: 11/13/16 Progress towards Goal:: Progressing [employer] Goals Goal #1: Pt knows HEP and to continue ex's to maintain functional level at D/C. Goal to be met by: 12/19/16 Progress towards goal: Partially Met Goal #2: Score on UE functional scale improved to 60/80. Goal to be met by: 12/19/16 Progress towards goal: Progressing Goal #3: Pt able to use left UE for all selfcare and ADL's with minimal difficulty. Goal to be met by: 12/19/16 Progress towards goal: Partially Met Goal #4: Pt able to perform daily functional reaching with left UE w/o pain. Goal to be met by: 12/19/16 Progress towards goal: Progressing Plan PLAN OF CARE EXPIRES ON:: 12/19/16 ORDER # VISITS AND/OR THROUGH DATE: 12/19/16 PLAN: Progress Exercises
--- NOTE | 2016-12-04 08:26 | RS.CXNS ---
Date of scheduled appointment: 12/04/16 Type: Cancel ( called,reports patient is sick today.)
--- NOTE | 2016-12-09 16:03 | RS.QUICKDC ---
Discharge from PT Date of Discharge: 12/09/16 Number of Visits: 8 Reason for Discharge: Patient doing well,called today to schedule 2 more sessions.She has had scheduling conflicts lately ,but feels she is comfortable doing her HEP on her own.She does have the protocol from [facility] for the shooulder manipulation.She agrees with D/C plan.
== END 2016-12-20 ==
PROVIDERS: ATTEND Orthopaedic Surgery
DX: M75.02 Adhesive capsulitis of left shoulder (principal)

== ENCOUNTER 2017-03-24 10:28 | Outpatient (CLI) | END 2017-03-24 10:29 | disposition home or self-care (01) | LOC: LAB 10:28 | PROVIDERS: ATTEND Nurse Practitioner | DX: E11.42 Type 2 diabetes mellitus with diabetic polyneuropathy (principal); E11.65 Type 2 diabetes mellitus with hyperglycemia; E11.8 Type 2 diabetes mellitus with unspecified complications; I10 Essential (primary) hypertension; J34.89 Other specified disorders of nose and nasal sinuses; Z79.4 Long term (current) use of insulin | CPT/HCPCS: 36415; 83036 ==

== ENCOUNTER 2017-06-01 08:48 | Outpatient (CLI) | END 2017-06-01 08:49 | disposition home or self-care (01) | LOC: CAR 08:48 | PROVIDERS: ATTEND Nurse Practitioner | DX: R42 Dizziness and giddiness (principal); N39.0 Urinary tract infection, site not specified | CPT/HCPCS: 87086; 93005; 93010 ==

== ENCOUNTER 2017-12-16 08:44 | Outpatient (CLI) | END 2017-12-16 08:45 | disposition home or self-care (01) | LOC: LAB 08:44 | PROVIDERS: ATTEND Nurse Practitioner | DX: E11.65 Type 2 diabetes mellitus with hyperglycemia (principal); N39.0 Urinary tract infection, site not specified | CPT/HCPCS: 36415; 81001; 83036; 87086 ==

== ENCOUNTER 2017-12-29 17:49 | Emergency (ER) | payer OTHER ==
[2017-12-29 17:54] VITALS: BP 123/77; TEMP 98.4; BMI 43.5
--- NOTE | 2017-12-29 18:30 | ED.PDOC ---
General ED Provider: Dr. LYNN DIAZ Chief Complaint: Knee Pain/Injury Stated Complaint: KNEE PAINLEFT FATER A FALL Time Seen by Physician: 18:00 (SEEN WITH ROBERT) Mode of Arrival: Wheelchair Information Source: Patient Exam Limitations: No limitations Primary Care Provider: JULITA ESPINOZA Nursing and Triage Documentation Reviewed and Agree: Yes Does patient meet sepsis criteria?: No System Inflammatory Response Syndrome: Not Applicable Sepsis Protocol: For patient's 13 years and over: Temp is 96.8 and below OR 101 and greater Pulse >90 BPM Resp >20/minute Acutely Altered Mental Status Are patient's symptoms suggestive of a new infection, such as: -Pneumonia -Skin, Soft Tissue -Endocarditis -UTI -Bone, Joint Infection -Implantable Device -Acute Abdominal Infection -Wound Infection -Meningitis -Blood Stream Catheter Infection -Unknown Musculoskeletal Complaint Exam - Knee Pain Complaint/Exam Mechanism of Injury: Reports: Trauma Onset/Duration: TODAY Symptoms Are: Still present Onset of Pain: Reports: Immediate Initial Severity: Moderate Current Severity: Moderate Location: Reports: Discrete Character: Reports: Aching Alleviating: Reports: Rest, Position Aggravating: Reports: Movement, Weight bearing Associated Signs and Symptoms: Denies: Swelling, Redness, Bruising, Fever, Weakness, Numbness, Tingling Able to Bear Weight: Yes Septic Arthritis Risk Factors: Reports: None Gout Risk Factors: Reports: None Knee Findings: Present: Limited range of motion Tenderness: Present: Pre-patellar Enrico Test Positive: No Kacie Test Positive: No Limited Range of Motion: Present: Active, Passive, Flexion, Extension, Patellar apprehension Differential Diagnoses: Closed Fracture, Internal Derangement Review of Systems - Review Of Systems Constitutional: Reports: No symptoms Eyes: Reports: No symptoms Ears, Nose, Mouth, Throat: Reports: No symptoms Respiratory: Reports: No symptoms Cardiac: Reports: No symptoms GI: Reports: No symptoms : Reports: No symptoms Musculoskeletal: Reports: Joint pain (LEFT KNEE) Skin: Reports: No symptoms Neurological: Reports: No symptoms Endocrine: Reports: No symptoms Hematologic/Lymphatic: Reports: No symptoms All Other Systems: Reviewed and Negative Past Medical History - Past Medical History Previously Healthy: Yes Endocrine: Reports: None Cardiovascular: Reports: None Respiratory: Reports: None Hematological: Reports: None Gastrointestinal: Reports: None Genitourinary: Reports: None Neuro/Psych: Reports: None Musculoskeletal: Reports: None Cancer: Reports: None Last Menstrual Period: NONE - Surgical History General Surgical History: Reports: Unknown - Family History Family History: Reports: Unknown - Social History Smoking Status: Never smoker Hx Substance Use: No Alcohol Screening: None Physical Exam - Physical Exam Appearance: Well-appearing, No pain distress, Well-nourished Eyes: GENE, EOMI, Conjunctiva clear ENT: Ears normal, Nose normal, Oropharynx normal Respiratory: Airway patent, Breath sounds clear, Breath sounds equal, Respirations nonlabored Cardiovascular: RRR, Pulses normal, No rub, No murmur GI/: Soft, Nontender, No masses, Bowel sounds normal, No Organomegaly Musculoskeletal: Limited ROM (LEFT KNEE ) Skin: Warm, Dry, Normal color Neurological: Sensation intact, Motor intact, Reflexes intact, Cranial nerves intact, Alert, Oriented Psychiatric: Affect appropriate, Mood appropriate Critical Care Note - Critical Care Note Total Time (mins): 0 Course - Course Orders, Labs, Meds: Orders Category Date Time Status CT KNEE LEFT WITHOUT CONTRAST Stat RADS 12/29/17 18:27 Ordered Vital Signs: Temp Pulse Resp BP Pulse Ox 12/29/17 17:49 98.4 F 111 H 20 123/77 95 Departure - Departure Time of Disposition: 18:30 Disposition: HOME SELF-CARE Discharge Problem: Knee pain Instructions: Arthralgia (ED), Knee Pain (ED) Condition: Good Pt referred to PMD for follow-up: Yes IPMP verified?: No Additional Instructions: Please call your Family Physician as soon as possible to schedule a follow-up appointment Allergies/Adverse Reactions: Allergies clarithromycin [From Biaxin] Adverse Reaction (Verified 12/29/17 17:54) promethazine [From Phenergan] Adverse Reaction (Verified 12/29/17 17:54) propoxyphene napsylate [From Darvocet-N 100] Adverse Reaction (Verified 17:54) Sulfa (Sulfonamide Antibiotics) Adverse Reaction (Verified 12/29/17 17:54) sulfamethoxazole [From Bactrim] Adverse Reaction (Verified 12/29/17 17:54) trimethoprim [From Bactrim] Adverse Reaction (Verified 12/29/17 17:54) Home Medications: Ambulatory Orders Aspirin [Aspirin EC] 81 mg PO DAILY 02/02/13 Gabapentin [Neurontin] 300 mg PO TID 02/02/13 Cyclobenzaprine HCl [Flexeril] 10 mg PO TID 04/13/13 Acetaminophen [Tylenol] 500 mg PO TID PRN 08/07/14 Lorazepam [Ativan] 1 mg PO BID PRN 08/07/14 Fluoxetine HCl 10 mg PO BEDTIME 01/18/16 Levetiracetam [Keppra] 750 mg PO BID 01/18/16 Ondansetron HCl [Zofran Tab] 4 mg PO QID PRN 01/18/16 Lisinopril [Zestril] 5 mg PO DAILY 01/21/16 Albuterol Sulfate [Proair Hfa] 2 puff IH Q4-6H PRN 06/01/16 Budesonide/Formoterol Fumarate [Symbicort 80-4.5 Mcg Inhaler] 2 puff IH BID 03/08 Insulin Aspart Protam & Aspart [Novolog Mix 70-30 Flexpen Syrn] 1 unit SQ DIRECTED 06/01/16 Meclizine HCl [Antivert] 25 mg PO BID PRN 06/01/16 Metformin HCl [Glucophage] 1,000 mg PO BID 06/01/16 Metronidazole [Metrogel] 75 gm TP BID 06/01/16 Pantoprazole Sodium [Protonix] 40 mg PO QDAC 06/01/16 Pravastatin Sodium [Pravachol] 20 mg PO BEDTIME 06/01/16 Topiramate [Topamax] 50 mg PO BID 06/01/16 Insulin Detemir [Levemir] 24 unit SUBCUT BEDTIME 08/05/16 Disposition Discussed With: Patient, Family
[2017-12-29] MEDS ORDERED: NORCO 10-325 PO STA (18:53)
--- NOTE | 2017-12-29 19:08 | CT ---
EXAM: CT of the left knee without contrast History: Left knee pain and trauma. Technique: Multiplanar CT images through the left knee were obtained without the administration of I V contrast Findings: There is a large 2.4 cm ossific density seen adjacent to the anterior tibial tubercle with associated nondisplaced fracture. This probably is an accessory ossicle with associated fracture. N o other fractures are seen. No dislocation. Mild anterior soft tissue swelling and trace joint effusi on. Moderate narrowing of the medial compartment. Mild to moderate narrowing of the patellofemoral compartments and lateral compartment. There are osteophytes and marginal sclerosis. Impression: Nondisplaced fracture of anterior tibial accessory ossicle.
== END 2017-12-29 19:41 | disposition home or self-care (01) ==
LOC: ED 17:49
DX: S82.202A Unspecified fracture of shaft of left tibia, initial encounter for closed fracture (principal); M25.562 Pain in left knee; W19.XXXA Unspecified fall, initial encounter
CPT/HCPCS: 99283

== ENCOUNTER 2018-04-07 13:56 | Outpatient (CLI) | END 2018-04-07 13:57 | disposition home or self-care (01) | LOC: LAB 13:56 | PROVIDERS: ATTEND Nurse Practitioner | DX: N39.0 Urinary tract infection, site not specified (principal) | CPT/HCPCS: 81001 ==

== ENCOUNTER 2018-05-11 12:43 | Outpatient (POV) | payer OTHER | END 2018-05-11 17:00 | LOC: OUTPT 12:43 | PROVIDERS: ATTEND Otolaryngology | DX: R42 Dizziness and giddiness (principal) | CPT/HCPCS: 92557; 92567 ==

== ENCOUNTER 2018-11-24 17:31 | Outpatient (CLI) | payer OTHER | END 2018-11-24 17:53 | disposition short-term general hospital (02) | LOC: AMBL 17:31 | PROVIDERS: ATTEND Internal Medicine | DX: G40.901 Epilepsy, unspecified, not intractable, with status epilepticus (principal); E11.9 Type 2 diabetes mellitus without complications; N18.2 Chronic kidney disease, stage 2 (mild); I10 Essential (primary) hypertension ==